=== PATIENT | female | born 2005 | race Caucasian/White ===

== ENCOUNTER 2025-01-11 11:12 | Outpatient (CLI) | payer OTHER, SELFPAY | END 2025-01-11 11:13 | disposition home or self-care (01) | LOC: AMB 01-12 09:15 | PROVIDERS: Visit Provider Family Medicine | DX: R10.31 Right lower quadrant pain (principal) | CPT/HCPCS: A0425; A0427 ==

== ENCOUNTER 2025-01-11 11:39 | Emergency (ER) | payer OTHER, SELFPAY ==
[2025-01-11] VITALS (12 sets, daily range): BP systolic 107–123; BP diastolic 64–73; PULSE 50–77; RESP 14–18; TEMP 36.6; O2SAT 90–100; BMI 26.6
--- NOTE | 2025-01-11 11:52 | ED_ITS ---
HPI - General Adult General Time Seen by Provider: 11:52 Date Seen: 01/11/25 Chief complaint: Abdominal Pain Stated complaint: abdominal pain Time Seen by Provider: 01/11/25 11:42 Source: patient and EMS Limitations: no limitations History of Present Illness HPI narrative: Allison is 19-year-old female no past medical history presented from [facility] via EMS with lower abdominal pain. Patient states that she is currently on her menstrual cycle, the usually lasts around 5 days however since going to college 3 years ago it has become more irregular, use to get her cycles every 30 days, now they become more irregular sometimes every 100 days. Since the summer they become more painful especially during start of her cycle. She denies any clots or heavy bleeding however she is on iron for some iron deficiency anemia. Pain was so severe she almost passed out. She denies any urinary complaints or vaginal discharge, no recent intercourse. She denies being . She has not had any nausea vomiting. No abdominal surgeries. no fevers or chills. She is currently studying biology and a marlene. Related Data Home Medications ?Medication ?Instructions ?Recorded ?Confirmed doxycycline hyclate 50 mg capsule 50 mg PO .every other day 01/11/25 01/11/25 ferrous sulfate 325 mg (65 mg 325 mg PO DAILY 01/11/25 01/11/25 iron) tablet (FeroSul) Allergies Allergy/AdvReac Type Severity Reaction Status Date / Time No Known Drug Allergies Allergy Verified 01/11/25 11:43 Review of Systems Status of ROS: Reports: 10 or more systems reviewed and unremarkable except as noted in History and below PFS PFS Social History Smoking Status: Never smoker How often do you have a drink containing alcohol: never AUDIT-C Alcohol total score: 0 Non-prescribed substance use: denies use Exam Narrative: Exam Narrative: General:NAD, lying comfortably HEENT: Pupils equal round reactive to light, extraocular muscles intact, Neck: Supple full range of motion Lungs: Clear to auscultation bilaterally Heart: NSR, S1S2 Abdomen: Soft nontender, bowel sounds present Muscle skeletal: No CVA tenderness Neuro: GCS 15 Const: Vital Signs, click to edit/add: Vital Signs - 24 hr 01/11/25 11:45 01/11/25 12:01 01/11/25 12:31 Temperature 97.8 F Pulse Rate 68 75 Pulse Rate [Pulse Oximeter] 57 L Respiratory Rate 18 14 16 Blood Pressure 114/65 113/65 Blood Pressure [Le ft Upper Arm] 115/73 Pulse Oximetry 100 90 96 Oxygen Delivery Me thod Room Air 01/11/25 13:01 01/11/25 13:02 01/11/25 13:15 Temperature Pulse Rate 64 77 59 L Pulse Rate [Pulse Oximeter] Respiratory Rate 14 Blood Pressure 107/68 Blood Pressure [Le ft Upper Arm] Pulse Oximetry 100 100 99 Oxygen Delivery Me thod 01/11/25 13:32 01/11/25 13:33 01/11/25 13:45 Temperature Pulse Rate 52 L 53 L 58 L Pulse Rate [Pulse Oximeter] Respiratory Rate Blood Pressure 123/71 Blood Pressure [Le ft Upper Arm] Pulse Oximetry 90 99 Oxygen Delivery Me thod 01/11/25 14:00 01/11/25 14:02 01/11/25 14:15 Temperature Pulse Rate 50 L 53 L 56 L Pulse Rate [Pulse Oximeter] Respiratory Rate Blood Pressure 114/64 Blood Pressure [Le ft Upper Arm] Pulse Oximetry 99 99 100 Oxygen Delivery Me thod Course Course ED Course: 11:30 AM: aidet performed. Vitals are normal at this time, workup will include urinalysis, qualitative serum HCG, CBC, CRP, CMP, lipase, suspect dysmenorrhea, will await the lab results of further imaging will be obtained. Patient does not want anything for pain at this time, differential includes cholecystitis, gastritis, pancreatitis, appendicitis, colitis, endometriosis, ectopic , UTI, pyelonephritis, dysmenorrhea, as well as all etiologies. Reevaluation(s) Time of Reevaluation #1: 13:20 Reevaluation #1: Patient to go for ultrasound transvaginal to rule out any pelvic pathology, pain has been controlled, CBC showed no leukocytosis, CRP was negative, qualitative hCG negative, comprehensive metabolic panel showed normal renal function, LFTs and electrolytes. Urinalysis unremarkable. Reevaluation #2: Pelvic ultrasound was unremarkable, patient is feeling better after above care given, will plan to discharge, should follow-up with her primary care provider over the next 1-2 weeks, Motrin 600 mg and/or Tylenol 1000 mg every 6 hours as needed for pain, return if worsening symptoms. Vital Signs Vital signs: Initial Vital Signs Temperature 97.8 F 01/11/25 11:45 Temperature Source Temporal Artery Scan 01/11/25 11:45 Pulse Rate 57 L 01/11/25 11:45 Pulse Rhythm Regular 01/11/25 11:45 Respiratory Rate 18 01/11/25 11:45 Blood Pressure 115/73 01/11/25 11:45 Blood Pressure Mean 87 01/11/25 11:45 Blood Pressure Position Supine 01/11/25 11:45 Pulse Oximetry 100 01/11/25 11:45 Oxygen Delivery Method Room Air 01/11/25 11:45 Vital Signs Temperature 97.8 F 01/11/25 11:45 Pulse Rate 57 L 01/11/25 11:45 Respiratory Rate 18 01/11/25 11:45 Blood Pressure 115/73 01/11/25 11:45 Pulse Oximetry 100 01/11/25 11:45 Oxygen Delivery Method Room Air 01/11/25 11:45 Temperature 97.8 F 01/11/25 11:45 Pulse Rate 56 L 01/11/25 14:15 Respiratory Rate 14 01/11/25 13:01 Blood Pressure 114/64 01/11/25 14:02 Pulse Oximetry 100 01/11/25 14:15 Oxygen Delivery Method Room Air 01/11/25 11:45 Medical Decision Making Lab Data Labs: Lab Results 01/11/25 01/11/25 Range/Units 12:05 Unknown WBC 9.35 (4.50-11.00) K/uL RBC 4.54 (4.00-5.20) m/uL Hgb 13.4 (12.0-16.0) gm/dL Hct 40.2 (33.0-51.0) % MCV 89 (80-100) fL MCH 30 (26-34) pg MCHC 33 (32-36) gm/dL RDW Coeff of Janna 11.8 (11.5-15.5) % Plt Count 141 (140-440) K/uL Neut % (Auto) 77.9 H (42.0-72.0) % Lymph % (Auto) 15.0 L (20-44) % [place] % (Auto) 6.4 (0.0-11.0) % Eos % (Auto) 0.5 (0.0-7.0) % Baso % (Auto) 0.1 (0.0-3.0) % Neut # (Auto) 7.30 H (1.7-7.0) K/uL Lymph # (Auto) 1.40 (0.90-2.90) K/uL [place] # (Auto) 0.60 (0.00-0.90) K/UL Eos # (Auto) 0.05 (0.00-0.50) K/uL Baso # (Auto) 0.01 (0.00-0.30) K/uL Abs Immat Gran (auto) 0.01 (0.00-0.30) K/uL Imm/Tot Granulo (auto) 0.1 % Sodium 139 (135-149) mmol/L Potassium 4.4 (3.6-5.1) mmol/L Chloride 106 (96-114) mmol/L Carbon Dioxide 26 (20-32) mmol/L Anion Gap 7 (7-15) mEq/L BUN 17 (5-24) mg/dL Creatinine 0.8 (0.5-1.5) mg/dL Estimated Creat Clear 108.17 Estimated GFR 107 ml/min Glucose 108 (60-115) mg/dL Calcium 9.7 (8.4-10.6) mg/dL Total Bilirubin 0.6 (0.1-1.5) mg/dL AST 30 (12-35) U/L ALT 19 (4-35) U/L Alkaline Phosphatase 55 (40-150) U/L C-Reactive Protein < 0.5 L (0.5-1.0) mg/dL Total Protein 7.1 (6.0-8.3) g/dL Albumin 4.4 (3.3-5.0) g/dL Lipase 64 (23-300) U/L HCG, Qual Negative (Negative) Urine Color Yellow (Yellow) Urine Appearance Clear (Clear) Urine pH 7.0 (5.0-8.5) Ur Specific [place] 1.020 (1.000-1.030) Urine Protein Negative (Negative) Urine Glucose (UA) Negative (Negative) Urine Ketones 1+ A (Negative) Urine Blood 1+ A (Negative) Urine Nitrite Negative (Negative) Urine Bilirubin Negative (Negative) Urine Urobilinogen 0.2 (0.2-1.0) Ur Leukocyte Esterase Negative (Negative) Urine RBC 5-10 A (0-2) Urine WBC 0-2 (0-5) Ur Squamous Epith Cells None (None-Few) Urine Bacteria Few A (None) Discharge Plan Discharge Clinical Impression: Pelvic pain Patient Disposition: Home, Self-Care Condition: Improved Instructions: Pelvic Pain (ED) Additional Instructions: To continue with Motrin 600 mg every 6 hours for pain if needed. To monitor for any worsening symptoms, fevers, worsening pain, nausea or vomiting to return to the emergency department, follow-up with a primary care provider as needed over the next 1-2 weeks. Prescriptions: No Action doxycycline hyclate 50 mg capsule 50 mg PO .every other day Patient Comments: For acne ferrous sulfate [FeroSul] 325 mg (65 mg iron) tablet 325 mg PO DAILY Follow Up/Referrals: Provider,Not a Local [Primary Care Provider] - Stand Alone Forms: [employer] [place] Info Instructions
[2025-01-11 12:12] LABS: Hematocrit 40.2 % (33.0-51.0); Hemoglobin* 13.4 gm/dL (12.0-16.0); Mean Corpuscular HGB Conc 33 gm/dL (32-36); Mean Corpuscular Hemoglobin 30 pg (26-34); Mean Corpuscular Volume 89 fL (80-100); Neutrophils Percent Auto 77.9 % (42.0-72.0); Platelet Count* 141 K/uL (140-440); RDW Coefficient of Variation % 11.8 % (11.5-15.5); Red Blood Count 4.54 m/uL (4.00-5.20); White Blood Count* 9.35 K/uL (4.50-11.00)
[2025-01-11 12:13] LABS: Basophils Absolute Auto 0.01 K/uL (0.00-0.30); Basophils Percent Auto 0.1 % (0.0-3.0); Eosinophils Absolute Auto 0.05 K/uL (0.00-0.50); Eosinophils Percent Auto 0.5 % (0.0-7.0); Immature Granulocytes Abs Auto 0.01 K/uL (0.00-0.30); Immature Granulocytes Pct Auto 0.1 %; Monocytes Percent Auto 6.4 % (0.0-11.0)
[2025-01-11 12:25] LABS: Albumin* 4.4 g/dL (3.3-5.0); Chloride* 106 mmol/L (96-114)
[2025-01-11 12:26] LABS: Potassium* 4.4 mmol/L (3.6-5.1); Sodium* 139 mmol/L (135-149)
[2025-01-11 12:28] LABS: Alanine Aminotransferase* 19 U/L (4-35); Aspartate Amino Transferase* 30 U/L (12-35); Blood Urea Nitrogen* 17 mg/dL (5-24); Creatinine* 0.8 mg/dL (0.5-1.5); Est. Creatinine Clearance* 108.17; Estimated Glomerular Filt Rate 107 ml/min
[2025-01-11 12:29] LABS: Alkaline Phosphatase* 55 U/L (40-150); Anion Gap 7 mEq/L (7-15); Bilirubin Total* 0.6 mg/dL (0.1-1.5); Calcium* 9.7 mg/dL (8.4-10.6); Carbon Dioxide* 26 mmol/L (20-32); Glucose* 108 mg/dL (60-115); Lipase* 64 U/L (23-300); Total Protein* 7.1 g/dL (6.0-8.3)
[2025-01-11 12:33] LABS: C Reactive Protein* < 0.5 mg/dL (0.5-1.0)
[2025-01-11 12:34] LABS: Slide Review Reflex No
[2025-01-11 12:54] LABS: HCG Qualitative Serum* Negative (Negative)
[2025-01-11 12:56] LABS: Appearance Urine Clear (Clear); Bilirubin Urine Negative (Negative); Blood Urine 1+ (Negative); Color Urine Yellow (Yellow); Glucose Urine Negative (Negative); Ketones Urine 1+ (Negative); Leukocyte Esterase Urine Negative (Negative); Nitrite Urine Negative (Negative); Protein Urine Negative (Negative); Urobilinogen Urine 0.2 (0.2-1.0)
[2025-01-11 13:05] LABS: Bacteria Urine Few; WBC Urine 0-2 (0-5)
--- NOTE | 2025-01-11 13:06 | CRLHL7_ITS ---
For Patients: As a result of the Century Cures Act, medical imaging exams and procedure reports are released immediately into your electronic medical record. You may view this report before your referring provider. If you have questions, please contact your health care provider. INDICATION: Severe pelvic pain COMPARISON: None. TECHNIQUE: Transvaginal: Hudson-scale and color Doppler ultrasound of the uterus and ovaries from a transvaginal approach. Transvaginal ultrasound of the pelvis was performed to better visualize the genitourinary organs, such as the ovaries and/or endometrium. Color-flow and spectral Doppler imaging of both ovaries is performed. FINDINGS: Reported last menstrual period: 01/11/2025. The uterus is anteverted and measures 6.1 x 3.3 x 4.2 cm. No uterine masses. The endometrial stripe measures 1.0 cm in double thickness. No endometrial masses. The cervix is normal. The right ovary measures 3.2 x 1.4 x 1.7 cm. Physiologic appearance without a dominant cystic lesion or solid ovarian / adnexal mass. Normal color Doppler flow. Normal arterial waveforms. The left ovary measures 2.9 x 1.5 x 1.7 cm. Physiologic appearance without a dominant cystic lesion or solid ovarian / adnexal mass. Normal color Doppler flow. Normal arterial waveforms. No free fluid. IMPRESSION: Normal pelvic ultrasound. Dictated by Mica Verdugo MD @ 01/11/2025 2:16:56 PM (Electronically Signed)
== END 2025-01-11 14:47 | disposition home or self-care (01) ==
PROVIDERS: Emergency Provider Student in an Organized Health Care Education/Training Program
DX: R10.2 Pelvic and perineal pain (principal)
CPT/HCPCS: 36415; 76830; 80053; 81001; 83690; 84703; 85025; 86140; 87086; 93976; 99284